=== PATIENT | male | born 1995 | race American Indian/Alaskan Native ===

== ENCOUNTER 2016-12-05 07:43 | Emergency (ER) | payer BC, OTHER ==
[2016-12-05 07:49] VITALS: BP 128/64; PULSE 69; RESP 16; TEMP 97.6; BMI 23.6
[2016-12-05 07:53] VITALS: O2SAT 98
--- NOTE | 2016-12-05 08:40 | ED PDOC ---
HPI: Eye Injury/Pain Time Seen by Provider: 12/05/16 07:53 Chief Complaint (Nursing): Eye Problem Chief Complaint (Provider): Left eye pain History Per: Patient History/Exam Limitations: no limitations Onset/Duration Of Symptoms: Hrs (Since this morning) Current Symptoms Are (Timing): Still Present Additional Complaint(s): Timur Shepherd is a 21 y/o male who presents to the emergency department complaining of left eye pain with associated tearing and minimal photophobia, ongoing since this morning. Patient denies itching and purulent discharge. He wears contact lenses. PMD: Unknown Past Medical History Reviewed: Historical Data, Nursing Documentation, Vital Signs Vital Signs: Last Vital Signs Temp 97.6 F 12/05/16 07:48 Pulse 69 12/05/16 07:48 Resp 16 12/05/16 07:48 BP 128/64 12/05/16 07:48 Pulse Ox 98 12/05/16 07:51 - Medical History PMH: No Chronic Diseases Other PMH: Wears contact lenses - Surgical History Surgical History: No Surg Hx - Family History Family History: States: Unknown Family Hx - Home Medications Home Medications: Ambulatory Orders Medication Instructions Recorded Moxifloxacin HCl [Vigamox] 2 drop OS Q2H #1 bottle 12/05/16 - Allergies Allergies/Adverse Reactions: Allergies Allergy/AdvReac Type Severity Reaction Status Date / Time No Known Allergies Allergy Verified 12/05/16 07:51 Review of Systems ROS Statement: Except As Marked, All Systems Reviewed And Found Negative Eyes: Positive for: Pain (Left eye pain with tearing), Redness. Negative for: Other (Itchiness, purulent discharge) Physical Exam - Reviewed Nursing Documentation Reviewed: Yes Vital Signs Reviewed: Yes - Physical Exam Appears: Positive for: Non-toxic, No Acute Distress Head Exam: Positive for: ATRAUMATIC, NORMAL INSPECTION, NORMOCEPHALIC Skin: Positive for: Normal Color, Warm, Dry Eye Exam: Positive for: EOMI, PERRL, Conjunctival injection, Other (Corneal abrasion at 06:00, fluorescein uptake at 06:00). Negative for: Nystagmus, Periorbital swelling, Periorbital tenderness, Scleral icterus Neck: Positive for: Normal, Painless ROM, Supple Cardiovascular/Chest: Positive for: Regular Rate, Rhythm Respiratory: Positive for: Normal Breath Sounds. Negative for: Accessory Muscle Use, Respiratory Distress Back: Positive for: Normal Inspection. Negative for: Vertebral Tenderness Extremity: Positive for: Normal ROM. Negative for: Pedal Edema, Deformity Neurologic/Psych: Positive for: Alert, Oriented - ECG O2 Sat by Pulse Oximetry: 98 (RA) Pulse Ox Interpretation: Normal Medical Decision Making Medical Decision Making: Time: 08:44 Clinical Impression: Corneal ulcer Upon provider evaluation patient is medically stable, and requires no further treatment in the ED at this time. Patient will be discharged home with Rx for Moxifloxacin HCl drops. Counseling was provided and all questions were answered regarding diagnosis and need for follow up. There is agreement to discharge plan. Return if symptoms persist or worsen. Scribe Attestation: Documented by Enriqueta Goff, acting as a scribe for Jada Chung MD Provider Scribe Attestation: All medical record entries made by the Scribe were at my direction and personally dictated by me. I have reviewed the chart and agree that the record accurately reflects my personal performance of the history, physical exam, medical decision making, and the department course for this patient. I have also personally directed, reviewed, and agree with the discharge instructions and disposition. Disposition - Clinical Impression Clinical Impression: Corneal ulcer - Patient ED Disposition Is Patient to be Admitted: No Doctor Will See Patient In The: Office Counseled Patient/Family Regarding: Diagnosis, Need For Followup, Rx Given - Disposition Referrals: Bill Otto MD [Staff Provider] - Disposition: Routine/Home Disposition Time: 08:44 Condition: STABLE Prescriptions: Moxifloxacin HCl [Vigamox] 2 drop OS Q2H #1 bottle Instructions: Corneal Ulcer (ED)
== END 2016-12-05 08:42 | disposition home or self-care (01) ==
LOC: H.ER 07:43
DX: H16.002 Unspecified corneal ulcer, left eye (principal)

== ENCOUNTER 2018-03-04 20:53 | Emergency (ER) | payer BC ==
[2018-03-04 20:53] VITALS: BMI 23.6
[2018-03-04 20:58] VITALS: BP 110/60; RESP 18; TEMP 99.4; O2SAT 97
--- NOTE | 2018-03-04 21:05 | ED PDOC ---
HPI: General Adult Chief Complaint (Provider): congestion History Per: Patient Additional Complaint(s): 22 y/o male presents with cough, congestion, subjective fever, body aches and sore throat for the past 4 days. Patient has not measured temp but has felt warm. He denies recent travel or known sick contacts. Patient has not taken any OTC meds for relief of symptoms. PMD: none <Elizabeth Gutiérrez - Last Filed: 03/04/18 21:25> <Jada Chung - Last Filed: 03/05/18 23:57> Time Seen by Provider: 03/04/18 21:02 Chief Complaint (Nursing): Cough, Cold, Congestion Supervising Attending Note - Attestation: I have personally seen and examined this patient.: No I have reviewed all pertinent clinical information, including history, physical exam and plan: Yes <Jada Chung - Last Filed: 03/05/18 23:57> Past Medical History Reviewed: Historical Data, Nursing Documentation, Vital Signs Vital Signs: Last Vital Signs Temp 99.4 F 03/04/18 20:56 Pulse 101 H 03/04/18 20:56 Resp 18 03/04/18 20:56 BP 110/60 03/04/18 20:56 Pulse Ox 97 03/04/18 20:56 - Medical History PMH: No Chronic Diseases - Surgical History Surgical History: Appendectomy - Family History Family History: States: No Known Family Hx - Living Arrangements Living Arrangements: With Family - Social History Current smoker - smoking cessation education provided: Yes Alcohol: Social Drugs: Cannabis <Elizabeth Gutiérrez - Last Filed: 03/04/18 21:25> Vital Signs: Last Vital Signs Temp 99.4 F 03/04/18 20:56 Pulse 96 H 03/04/18 21:49 Resp 18 03/04/18 20:56 BP 110/60 03/04/18 20:56 Pulse Ox 97 03/04/18 21:50 <Jada Chung - Last Filed: 03/05/18 23:57> - Home Medications Home Medications: Ambulatory Orders Medication Instructions Recorded RX: Moxifloxacin HCl [Vigamox] 2 drop OS Q2H #1 bottle 12/05/16 Albuterol HFA [Ventolin HFA 90 1 puff IH ASDIR #1 unit 03/04/18 mcg/actuation (8 g)] Azithromycin [Zithromax] 250 mg PO DAILY #6 tab 03/04/18 RX: Benzonatate 200 mg PO TID PRN #20 capsule 03/04/18 - Allergies Allergies/Adverse Reactions: Allergies Allergy/AdvReac Type Severity Reaction Status Date / Time No Known Allergies Allergy Verified 03/04/18 20:56 Review of Systems ROS Statement: Except As Marked, All Systems Reviewed And Found Negative Constitutional: Positive for: Fever (subjective, not measured), Other (body aches) Cardiovascular: Negative for: Chest Pain Respiratory: Positive for: Cough, Sputum (yellow and green) Gastrointestinal: Negative for: Nausea, Vomiting, Abdominal Pain Genitourinary Male: Negative for: Dysuria <Elizabeth Gutiérrez - Last Filed: 03/04/18 21:25> Physical Exam - Reviewed Nursing Documentation Reviewed: Yes Vital Signs Reviewed: Yes - Physical Exam Appears: Positive for: Well, Non-toxic, No Acute Distress Skin: Positive for: Normal Color. Negative for: Rash Eye Exam: Positive for: Normal appearance ENT: Positive for: Nasal Congestion (and sinus congestion), Pharyngeal Erythema Cardiovascular/Chest: Positive for: Regular Rate, Rhythm Respiratory: Positive for: Normal Breath Sounds, Wheezing (slight end exp wheezing). Negative for: Respiratory Distress Extremity: Positive for: Normal ROM Neurologic/Psych: Positive for: Alert, Oriented <Elizabeth Gutiérrez - Last Filed: 03/04/18 21:25> - ECG O2 Sat by Pulse Oximetry: 97 Pulse Ox Interpretation: Normal <Elizabeth Gutiérrez - Last Filed: 03/04/18 21:25> Nebulizer Treatments/Peak Flow - Duonebs Number of Bronchodilator Doses given?: 1 (duoneb) - Pre/Post Peak Flow Pre Treatment Peak Flow: 200 Post treatment Peak Flow: 280 - Steroid Treatment Steroid: Not Clinically Indicated - Clinical Response Clinical Response: Improved <Elizabeth Gutiérrez - Last Filed: 03/04/18 21:25> Medical Decision Making Medical Decision Makin22 year old male with flu like symptoms Plan: Duoneb x 1 Prescriptions given for Zithromax, Ventolin inhaler and Tessalon Perles. Patient advised to rest and drink plenty fluids and follow-up with PMD in 2-3 days. <Elizabeth Gutiérrez - Last Filed: 03/04/18 21:25> Disposition - Patient ED Disposition Is Patient to be Admitted: No Counseled Patient/Family Regarding: Diagnosis, Need For Followup, Rx Given, Smoking Cessation - Disposition Disposition: Routine/Home Disposition Time: 21:27 <Elizabeth Gutiérrez - Last Filed: 03/04/18 21:25> <ChungJada Idalia - Last Filed: 03/05/18 23:57> - Clinical Impression Clinical Impression: Upper respiratory infection - Disposition Referrals: [facility] [Outside] Condition: STABLE Additional Instructions: Take rx meds as directed. Rest and drink plenty of fluids. Follow up with primary care doctor in 2-3 days. Prescriptions: Albuterol HFA [Ventolin HFA 90 mcg/actuation (8 g)] 1 puff IH ASDIR #1 unit Azithromycin [Zithromax] 250 mg PO DAILY #6 tab RX: Benzonatate 200 mg PO TID PRN #20 capsule PRN Reason: Cough Instructions: Bacterial Upper Respiratory Infection, Adult, Quitting Smoking Forms: [employer] (Hungarian)
[2018-03-04] MEDS ORDERED: Albuterol-Ipratrop 3 mg / 0.5 (3 ml) UD INH STA (21:24)
[2018-03-04] MEDS ORDERED: Albuterol-Ipratrop 3 mg / 0.5 (3 ml) UD ONE (21:25)
[2018-03-04 21:49] VITALS: PULSE 96
== END 2018-03-04 21:53 | disposition home or self-care (01) ==
LOC: H.ER 20:53
DX: J06.9 Acute upper respiratory infection, unspecified (principal); F17.200 Nicotine dependence, unspecified, uncomplicated; Z79.899 Other long term (current) drug therapy

== ENCOUNTER 2018-08-10 10:21 | Emergency (ER) | payer BC ==
[2018-08-10 10:22] VITALS: BMI 23.6
[2018-08-10 10:43] VITALS: RESP 18
--- NOTE | 2018-08-10 11:44 | ED PDOC ---
HPI: General Adult Time Seen by Provider: 08/10/18 11:44 Chief Complaint (Nursing): Abnormal Skin Integrity Chief Complaint (Provider): left inguinal swelling History Per: Patient (23 y/o male here with left inguinal swelling noted x 3 weeks increasing. Initially seen by primary care dr and told he has swelling from shaving in region. Was using unkonwn cream without improvement of symptoms. No fevers/chills/abdomianl pain.) Past Medical History Reviewed: Historical Data, Nursing Documentation, Vital Signs Vital Signs: Last Vital Signs Temp 97.8 F 08/10/18 10:43 Pulse 79 08/10/18 10:43 Resp 18 08/10/18 10:43 BP 137/86 08/10/18 10:43 Pulse Ox 99 08/10/18 10:43 - Surgical History Surgical History: Appendectomy - Family History Family History: States: Unknown Family Hx - Home Medications Home Medications: Ambulatory Orders Medication Instructions Recorded Moxifloxacin HCl [Vigamox] 2 drop OS Q2H #1 bottle 12/05/16 Albuterol HFA [Ventolin HFA 90 1 puff IH ASDIR #1 unit 03/04/18 mcg/actuation (8 g)] Azithromycin [Zithromax] 250 mg PO DAILY #6 tab 03/04/18 Benzonatate 200 mg PO TID PRN #20 capsule 03/04/18 Naproxen 375 mg PO Q8 PRN #21 tablet 08/10/18 Sulfamethoxazole/Trimethoprim 2 tab PO BID #28 tablet 08/10/18 [Bactrim Ds Tablet] - Allergies Allergies/Adverse Reactions: Allergies Allergy/AdvReac Type Severity Reaction Status Date / Time No Known Allergies Allergy Verified 03/04/18 20:56 Review of Systems ROS Statement: Except As Marked, All Systems Reviewed And Found Negative Physical Exam - Reviewed Nursing Documentation Reviewed: Yes Vital Signs Reviewed: Yes - Physical Exam Appears: Positive for: Well, Non-toxic, No Acute Distress Head Exam: Positive for: ATRAUMATIC, NORMAL INSPECTION, NORMOCEPHALIC Skin: Positive for: Normal Color, Warm, DRY Eye Exam: Positive for: EOMI, Normal appearance, PERRL ENT: Positive for: Normal ENT Inspection Neck: Positive for: Normal, Painless ROM Cardiovascular/Chest: Positive for: Regular Rate, Rhythm Respiratory: Positive for: CNT, Normal Breath Sounds Gastrointestinal/Abdominal: Positive for: Normal Exam, Soft Male Genital Exam: Positive for: other (2 cm swelling with fluctuance noted left inguinal region. ?mild surrounding tenderness. No obvious erythema.) Back: Positive for: Normal Inspection Extremity: Positive for: Normal ROM Neurological/Psych: Positive for: Awake, Alert, Normal Tone - Laboratory Results Result Diagrams: 08/10/18 12:58 08/10/18 12:58 - ECG O2 Sat by Pulse Oximetry: 99 - Progress ED Course And Treament: Vancomycin 1 gm iv x 1 dose toradol 15 mg iv x 1 dose Scrotal US: complex mass appears to be abscess. Seen by operating room surgical technologist. Abscess to be I & D. wound cx sent toradol 15 mg iv x 2nd dose Disposition - Clinical Impression Clinical Impression: Abscess - Patient ED Disposition Is Patient to be Admitted: No - Disposition Referrals: Cassi Ibrahim MD [Staff Provider] - Disposition: Routine/Home Disposition Time: 19:20 Condition: FAIR Additional Instructions: F/U WITH SURGEON OR ED IN 2-3 DAYS FOR REMOVAL OF PACKING. Prescriptions: Naproxen 375 mg PO Q8 PRN #21 tablet PRN Reason: Pain, Moderate (4-7) Sulfamethoxazole/Trimethoprim [Bactrim Ds Tablet] 2 tab PO BID #28 tablet Instructions: Skin Abscess Forms: [facility] ED School/Work Excuse
[2018-08-10 13:08] LABS: BASO % 0.6 % (0.0-2.0); EOS # 0.1 K/uL (0.0-0.7); EOS % 0.9 % (0.0-4.0); HEMOGLOBIN 14.6 g/dL (12.0-18.0); LYMPH # 1.7 K/uL (1.0-4.3); LYMPH % 25.7 % (20.0-40.0); MEAN CELL VOLUME 86.6 fl (80.0-94.0); MEAN CORPUSCULAR HEMOGLOBIN 28.7 pg (27.0-31.0); MEAN CORPUSCULAR HGB CONC 33.1 g/dL (33.0-37.0); MEAN PLATELET VOLUME 8.5 fl (7.2-11.7); MONO # 0.5 K/uL (0.0-0.8); MONO % 7.9 % (0.0-10.0); NEUT # 4.2 K/uL (1.8-7.0); NEUT % 64.9 % (50.0-75.0); NRBC % 0.1 % (0.0-0.0); RBC 5.1 Mil/uL (4.40-5.90); RED CELL DISTRIBUTION WIDTH 13.7 % (11.5-14.5); WHITE BLOOD COUNT 6.5 K/uL (4.8-10.8)
[2018-08-10] MEDS ORDERED: Vancomycin 1 g Inj ONE (13:10)
[2018-08-10 13:17] LABS: ALB/GLOB RATIO 1.4 (1.0-2.1); ALBUMIN 4.8 g/dL (3.5-5.0); BLOOD UREA NITROGEN 14 mg/dl (9-20); CALCIUM 9.8 mg/dL (8.4-10.2); GFR NON-AFRICAN AMERICAN > 60
[2018-08-10 13:23] LABS: ALT/SGPT 20 U/L (21-72); AST/SGOT 30 U/L (17-59)
--- NOTE | 2018-08-10 16:02 | US ---
Date of service: 08/10/2018 HISTORY: r/o scrotal abscess. Pls inclued lft inguinal reg TECHNIQUE: Realtime sonography through the scrotum with color and doppler flow. COMPARISON: None Available. FINDINGS: RIGHT TESTICLE: Measures 4.1 x 2.5 x 2.1 cm. Normal echotexture and flow. RIGHT EPIDIDYMIS: Epididymal head measures 7 x 7 x 8 mm grossly unremarkable appearance with normal flow. LEFT TESTICLE: Measures 4.2 x 2.8 x 2.3 cm. Normal echotexture and flow. LEFT EPIDIDYMIS: Epididymal head measures 6 x 7 x 9 mm grossly unremarkable appearance with normal flow. HYDROCELE: None. VARICOCELE: None. OTHER FINDINGS: Patient was asked to return to the ultrasound suite for direct visualization and real-time scanning the area of interest. The findings appear to be closely related to the perineum/groin interface.. Here there is an obvious focal superficial mass which may be related to a infected follicle-the patient's shaves here or a clock infected sweat glands. A small superficial abscess is also a consideration. The internal contents of it do not suggest simple fluid. This superficial complex mass measures 3.6 x 3.0 x 1.9 cm. When the patient return, the probe was held stationary and cine images were obtained confirming that this does not fit with peristalsing bowel here. Clinically this is not suggested upon real-time visualization of the patient either. IMPRESSION: No intratesticular or epididymal pathology noted. Complex structure in the left inner thigh/perineum/groin interface corresponding to patient's area of pain consistent with a likely obstructed/infected left hair follicle (patient shaves here) and or an obstructed sweat gland here.. Sebaceous cyst can simulate this. An abscess with complex internal contents can simulate this.. The appearance and its location do not suggest a containing hernia here. Comments: Study marked for PA review .
--- NOTE | 2018-08-10 18:33 | CP.PCM.CON ---
History of Present Illness - History of Present Illness History of Present Illness: General Surgery Consult Note for Dr. Ibrahim Reason for consult: left groin abscess, needs I&D 23 M with no PMH presents to [facility] ED for complaint of left groin pain and abscess. Patient seen and evaluated in the ED. Patient states that he has had this present for about 1 month. He states that he saw his PMD for this and the stated that it was caused by an ingrown hair due to shaving. Patient reports that he has been using the same razor for about 1 year. He states pain has been severe in the left groin. He has had difficulty walking and getting around because of his pain. Denies fever/chills, cp, SOB, abd pain, n/v, diarrhea, c onstipation, or urinary symptoms. PMH: denies PSH: denies ALL: NKDA Review of Systems - Review of Systems All systems: reviewed and no additional remarkable complaints except (as per HPI) Past Patient History - Past Social History Smoking Status: Smoker Currrent Status Unknown - PSYCHIATRIC Hx Substance Use: No - SURGICAL HISTORY Hx Appendectomy: Yes - ANESTHESIA Hx Anesthesia: No Meds Home Medications: Home Medication List Medication Instructions Recorded Confirmed Type Naproxen 375 mg PO Q8 PRN #21 tablet 08/10/18 Rx Sulfamethoxazole/Trimethoprim 2 tab PO BID #28 tablet 08/10/18 Rx [Bactrim Ds Tablet] Allergies/Adverse Reactions: Allergies Allergy/AdvReac Type Severity Reaction Status Date / Time No Known Allergies Allergy Verified 03/04/18 20:56 Physical Exam - Constitutional Appears: Well, Non-toxic, No Acute Distress - Head Exam Head Exam: ATRAUMATIC, NORMOCEPHALIC - Eye Exam Eye Exam: EOMI, Normal appearance Pupil Exam: PERRL - ENT Exam ENT Exam: Mucous Membranes Moist - Neck Exam Neck exam: Positive for: Full Rom - Respiratory Exam Respiratory Exam: NORMAL BREATHING PATTERN - Cardiovascular Exam Cardiovascular Exam: REGULAR RHYTHM - GI/Abdominal Exam GI & Abdominal Exam: Normal Bowel Sounds, Soft, Tenderness. absent: Distended, Firm, Guarding, Hernia, Rebound, Rigid - Extremities Exam Extremities exam: Positive for: normal capillary refill, pedal pulses present. Negative for: calf tenderness Additional comments: left ggroin abscess measuring 3 cm x 3 cm, fluctuance present - Back Exam Back exam: absent: CVA tenderness (L), CVA tenderness (R) - Neurological Exam Neurological exam: Alert, CN II-XII Intact, Oriented x3 - Psychiatric Exam Psychiatric exam: Normal Affect, Normal Mood - Skin Skin Exam: Dry, Intact, Warm Results - Vital Signs Recent Vital Signs: Last Vital Signs Temp 97.8 F 08/10/18 10:43 Pulse 79 08/10/18 10:43 Resp 18 08/10/18 10:43 BP 137/86 08/10/18 10:43 Pulse Ox 99 08/10/18 11:46 - Labs Result Diagrams: 08/10/18 12:58 08/10/18 12:58 Labs: Laboratory Results - last 24 hr 08/10/18 08/10/18 08/10/18 12:58 12:58 12:58 WBC 6.5 RBC 5.10 Hgb 14.6 Hct 44.1 MCV 86.6 MCH 28.7 MCHC 33.1 RDW 13.7 Plt Count 246 MPV 8.5 Neut % (Auto) 64.9 Lymph % (Auto) 25.7 Otero % (Auto) 7.9 Eos % (Auto) 0.9 Baso % (Auto) 0.6 Neut # (Auto) 4.2 Lymph # (Auto) 1.7 Otero # (Auto) 0.5 Eos # (Auto) 0.1 Baso # (Auto) 0.0 Sodium 138 Potassium 5.4 H Chloride 101 Carbon Dioxide 29 Anion Gap 13 BUN 14 Creatinine 0.8 Est GFR ( Amer) > 60 Est GFR (Non-Af Amer) > 60 Random Glucose 92 Lactic Acid 1.0 Calcium 9.8 Total Bilirubin 0.5 AST 30 ALT 20 L Alkaline Phosphatase 62 Total Protein 8.4 H Albumin 4.8 Globulin 3.6 Albumin/Globulin Ratio 1.4 Assessment & Plan - Assessment and Plan (Free Text) Assessment: 23 M who presents with left groin abscess Plan: -Incision and drainage at bedside -Patient can be discharged with Bactrim for 7 days -September shower, Keep area clean and dry -Change dressing and needed -Follow up with Dr. Ibrahim within 1 week -Discussed with Dr. Patrice Barnhart PGY2 - Date & Time Date: 08/10/18 Time: 19:20 Incision and Drainage - Time Time Performed: 19:20 - Time Out Time Out: Side verified, Site verified, Patient ID confirmed, Sterile procedures obs. - Procedure Procedure-Incision & Drainage: Incision and drainage of left groin abscess - Consent obtained Consent obtained: Verbal - Performed by Performed by: Mid-level Provider - Indications Indications: Cutaneous abscess - Contraindications Contraindications: None - Location Location: Left, Inguina/Groin, Skin abscess - Dimensions Dimensions Length cm: 3 Dimensions width cm: 3 - Anesthetic Technique Anesthetic Technique: Local - Anesthetic Anesthetic: Lidocaine 1% - Systemic Analgesia Systemic Analgesia: Ketorolac - Procedure Procedure: Usual prep and drape, cm incision (2), Overlying area fluctuance, # scalpel used (11), Explored for loculations, Irrigated, Packed with sterile gauze - Drained Drained: ml blood (2) - Post-procedure Post procedure: Neurovascular status norm - Complications Complications: None - Patient tolerated procedure Patient tolerated procedure: Well
[2018-08-10] MEDS ORDERED: Povidone Iodine Topical 10% Sol ONE (19:15)
[2018-08-10] MEDS ORDERED: Lidocaine Hydrochloride 1% 10 ML ONE (19:18)
[2018-08-10 20:09] VITALS: BP 131/81; PULSE 81; TEMP 98.2; O2SAT 100
== END 2018-08-10 20:10 | disposition home or self-care (01) ==
LOC: H.ER 10:21
DX: L02.214 Cutaneous abscess of groin (principal)
CPT/HCPCS: 10060; 80053; 83605; 85025; 87040; 87070; 93975; 96374; 96375; 96376; 99283; J1885

== ENCOUNTER 2018-09-01 20:26 | Emergency (ER) | payer BC ==
[2018-09-01 20:27] VITALS: BMI 23.6
[2018-09-01 20:53] VITALS: BP 112/62; PULSE 78; RESP 16; TEMP 98.3; O2SAT 98
[2018-09-01] MEDS ORDERED: cefTRIAXone (Rocephin) 250 mg Inj IM STA (21:00)
--- NOTE | 2018-09-01 21:10 | ED PDOC ---
HPI: Male Pain Time Seen by Provider: 09/01/18 20:26 Chief Complaint (Nursing): Male Genitourinary Chief Complaint (Provider): Male Genitourinary History Per: Patient History/Exam Limitations: no limitations Onset/Duration Of Symptoms: Persistent (x1 week) Current Symptoms Are (Timing): Still Present Additional Complaint(s): 23 year old male with no significant medical history, presents to the emergency department with a complaint of burning on urination for the past week. He reports experiencing yellow, penile discharge 3 days ago, however, denies any discharge at present, fever, chills, nausea, vomiting, pain or irritation to affect area. Patient admits to being sexually active, unprotected and protected, with multiple partners and had history of a prior STI a few years ago. PCP: none provided Past Medical History Reviewed: Historical Data, Nursing Documentation, Vital Signs Vital Signs: Last Vital Signs Temp 98.3 F 09/01/18 20:53 Pulse 78 09/01/18 20:53 Resp 16 09/01/18 20:53 BP 112/62 09/01/18 20:53 Pulse Ox 98 09/01/18 20:53 - Medical History PMH: No Chronic Diseases - Surgical History Surgical History: Appendectomy - Family History Family History: States: Unknown Family Hx - Home Medications Home Medications: Ambulatory Orders Medication Instructions Recorded Moxifloxacin HCl [Vigamox] 2 drop OS Q2H #1 bottle 12/05/16 Albuterol HFA [Ventolin HFA 90 1 puff IH ASDIR #1 unit 03/04/18 mcg/actuation (8 g)] Azithromycin [Zithromax] 250 mg PO DAILY #6 tab 03/04/18 Benzonatate 200 mg PO TID PRN #20 capsule 03/04/18 Naproxen 375 mg PO Q8 PRN #21 tablet 08/10/18 Sulfamethoxazole/Trimethoprim 2 tab PO BID #28 tablet 08/10/18 [Bactrim Ds Tablet] - Allergies Allergies/Adverse Reactions: Allergies Allergy/AdvReac Type Severity Reaction Status Date / Time No Known Allergies Allergy Verified 09/01/18 20:51 Review of Systems ROS Statement: Except As Marked, All Systems Reviewed And Found Negative Constitutional: Negative for: Fever, Chills Gastrointestinal: Negative for: Nausea, Vomiting Genitourinary Male: Positive for: Dysuria (burning), Penile Discharge (yellow). Negative for: Penile Pain (or irritation) Physical Exam - Reviewed Nursing Documentation Reviewed: Yes Vital Signs Reviewed: Yes - Physical Exam Appears: Positive for: Non-toxic, No Acute Distress Male Genital Exam: Positive for: other (RN Nusrat Sales present as oracle architect) Neurological/Psych: Positive for: Awake, Alert, Oriented - ECG O2 Sat by Pulse Oximetry: 98 (RA) Pulse Ox Interpretation: Normal Medical Decision Making Medical Decision Making: Time: 1899 Initial Plan: * Chlamydia/GC * Rocephin IM * Zithromax PO * UA with culture Time: 2128 --Upon provider reevaluation, patient is medically stable and requires no further treatment in the ED at this time. Given (-) UA results, patient will be discharged home and educated on STD/STI prevention. Findings and plan were discussed with patient who verbalizes understanding to call ED for culture results in 2-3 days. Counseling was provided and all questions were answered regarding diagnosis. There is agreement to discharge plan. Return precautions discussed. Clinical Impression: STI Scribe Attestation: Documented by Sheela Hernandes, acting as a scribe for Edita Samaniego APN. Provider Scribe Attestation: All medical record entries made by the Scribe were at my direction and personally dictated by me. I have reviewed the chart and agree that the record accurately reflects my personal performance of the history, physical exam, medical decision making, and the department course for this patient. I have also personally directed, reviewed, and agree with the discharge instructions and disposition. Disposition - Clinical Impression Clinical Impression: STI (sexually transmitted infection) - Patient ED Disposition Is Patient to be Admitted: No Counseled Patient/Family Regarding: Diagnosis, Need For Followup - Disposition Disposition: Routine/Home Disposition Time: 21:29 Condition: GOOD Instructions: Sexually-Transmitted Diseases (DC), STD Prevention Print Language: OMANI - POA Present On Arrival: Hung
[2018-09-01] MEDS ORDERED: Sterile Water 10 ML IV ONE (21:19)
[2018-09-01] MEDS ORDERED: cefTRIAXone (Rocephin) 250 mg Inj ONE (21:19)
[2018-09-01 21:25] LABS: SQUAMOUS EPITHIAL < 1 /hpf (0-5); URINE BILIRUBIN NEGATIVE (NEGATIVE); URINE BLOOD NEGATIVE (NEGATIVE); URINE CLARITY CLOUDY (Clear); URINE COLOR YELLOW (YELLOW); URINE GLUCOSE (UA) NEG (NEGATIVE); URINE LEUKOCYTE ESTERASE NEG Leu/uL (Negative); URINE PROTEIN NEGATIVE (NEGATIVE)
== END 2018-09-01 21:37 | disposition home or self-care (01) ==
LOC: H.ER 20:26
DX: A64 Unspecified sexually transmitted disease (principal)
CPT/HCPCS: 81003; 87070; 87086; 87491; 87591; 96372; 99283; J0696